=== PATIENT | male | born 1950 | race Caucasian/White ===

== ENCOUNTER → 2017-11-22 | Outpatient (CLI) | payer OTHER ==
[~2017-11-22] MED LIST: ALLO300; ASPI81CH; ATOR40TA; CHOL10002; CHONDROITEN; FISH1000 PO; FLUO10 PO; HYDACE5 PO; NAPR500EC PO; ONDA8 PO; PARO30; Viagra100 MG
== END | disposition home or self-care (01) ==
LOC: PLD 10:57 → LAB SHORT 10:57
DX: L57.0 Actinic keratosis (principal)
CPT/HCPCS: 88305

== ENCOUNTER 2018-09-04 09:03 | Day surgery (SDC) | payer OTHER ==
[~2018-09-04] VITALS: Ht 175.3 cm; Wt 95.2 kg
[~2018-09-04 09:03] MED LIST changes: -ALLO300; +ALLO300 PO; -ATOR40TA; +ATOR40TA PO; +Flonase 0.05% N16 GM
--- NOTE | 2018-09-04 09:35 | NUR ---
Ambulatory in Day Surgery History, Chart, Medications and Allergies reviewed before start of procedure.Lungs clear T/O to Auscultation. Patient confirms NPO status and agrees with scheduled surgery. Patient reports completing Chlorhexadine shower X2 prior to admission to hospital.Surgical site prepped with 2% Chlorhexidine cloth wipe.
--- NOTE | 2018-09-04 13:05 | NUR ---
BLADDER SCANNED 121 ML NOTED X 3
--- NOTE | 2018-09-04 19:58 | NUR ---
SUMARY POD # 0 R TKA PT HAS DONE WELL SINCE ADMISSION TO THE FLOOR. PT REMAINS A&O X4, DENIES PAIN AND IS TOLERATING PO INTAKE. PT HAS AMBULATED IN [place] X1 WITH 1 PERSON ASSIST, USING GAIT BELT & WALKER WITH NO PROBLEMS. VSS. CALL LIGHT IN REACH. REPORT GIVEN TO TOM HUANG
[2018-09-05 04:12] LABS: BASOPHILS ABSOLUTE AUTO 0.01 K/mm3 (0.00-0.23); BASOPHILS PERCENT AUTO 0 % (0-2); EOSINOPHILS ABSOLUTE AUTO 0.02 K/mm3 (0.00-0.68); EOSINOPHILS PERCENT AUTO 0 % (0-6); Hematocrit 37.1 % (37.0-53.0); Hemoglobin 11.7 g/dL (13.5-17.5); IMMATURE GRAN ABSOLUTE AUTO 0.04 K/mm3 (0.00-0.10); IMMATURE GRAN PERCENT AUTO 0 % (0-1); LYMPHOCYTES ABSOLUTE AUTO 0.67 K/mm3 (0.84-5.20); LYMPHOCYTES PERCENT AUTO 7 % (21-46); MONOCYTES ABSOLUTE AUTO 0.86 K/mm3 (0.16-1.47); MONOCYTES PERCENT AUTO 9 % (4-13); Mean Corpuscular HGB 31.1 pg (26.0-34.0); Mean Corpuscular HGB Conc 31.5 g/dL (31.5-36.5); Mean Corpuscular Volume 99 fL (80-100); Mean Platelet Volume 8.8 fL (9.1-12.4); NEUTROPHILS ABSOLUTE AUTO 8.47 K/mm3 (1.96-9.15); NEUTROPHILS PERCENT AUTO 84 % (41-73); Platelet Count 185 K/mm3 (150-400); RDW Coefficient Variation 12.7 % (11.7-14.2); RDW Standard Deviation 45.5 fL (35.1-46.3); Red Blood Cell Count 3.76 M/mm3 (4.30-5.90); White Blood Cell Count 10.07 K/mm3 (4.00-11.30)
--- NOTE | 2018-09-05 04:27 | NUR ---
SHIFT SUMMARY PT IS POD 1 RIGHT TKA. PT IS WBAT, AMBULATES W/ SBA, FWW, AND GB. PAIN CONTROLLED PER EMAR, PT HAS NOT REQUIRED MUCH MORE THAN THE SCHEDULED TYLENOL/TORADOL, REFUSED OXYCODONE THIS MORNING. ABX COMPLETED PER EMAR. PT WORE HIS HOME CPAP AT HS. VOIDING WITHOUT ISSUE. DENIES N/V. WILL CTM UNTIL PASS TO NEXT SHIFT.
[2018-09-05 04:39] LABS: Anion Gap 8 mmol/L (6-16); Blood Urea Nitrogen 25 mg/dL (8-24); Bun/Creatinine Ratio 25.5 (12.0-20.0); CO2, Blood 26 mmol/L (21-32); Calcium, Blood 8.1 mg/dL (8.5-10.1); Chloride, Blood 105 mmol/L (98-108); Creatinine, Blood 0.98 mg/dL (0.60-1.20); Glomerular Filtration Rate >60 (60-); Glucose, Blood 131 mg/dL (70-99); Potassium, Blood 4.3 mmol/L (3.5-5.5); Sodium, Blood 139 mmol/L (136-145)
[2018-09-05] MEDS ORDERED: ASPI325EC PO (09:26)
[2018-09-05] MEDS ORDERED: OXYC5 PO (09:27)
[2018-09-05] MEDS ORDERED: PROM25 PO (09:32)
--- NOTE | 2018-09-05 11:09 | NUR ---
09/05/18 1109 Madelyn Dalton VERIFICATIONS, CHART EDITS.
[2018-09-05] MEDS ORDERED: CLIN300 PO (13:10)
[2018-09-05] MEDS ORDERED: Bactrim Ds Tab1 EACH PO (13:11)
--- NOTE | 2018-09-05 16:12 | NUR ---
PATIENT D/C'D HOME W/ SO AT THIS TIME. PATIENT STATES UNDERSTANDING OF MEDS, WOUND CARE, ACTIVITY, F/U APPT, OP PT, ETC. PATIENT STATES PAIN CONTROLLED, TOLERATING PO, VOIDING W/O PROBS. NO ACUTE CHANGES OR C/O AT THIS TIME.
== END 2018-09-05 16:12 | disposition home or self-care (01) ==
LOC: ORSCMMR 09:03 → ORD 10:45 → ORSCMMR 10:45 → SURS 13:26 → ORSCMMR 09-05 16:12
PROVIDERS: Orthopaedic Surgery
PROC: 8E0YXBZ Computer Assisted Procedure of Lower Extremity (ICD-10-PCS; principal; 2018-09-04 10:45)
PROC: 0SRC0J9 Replacement of Right Knee Joint with Synthetic Substitute, Cemented, Open Approach (ICD-10-PCS; principal; 2018-09-04 10:45)
DX: M17.11 Unilateral primary osteoarthritis, right knee (principal); I10 Essential (primary) hypertension; E66.9 Obesity, unspecified; Z68.30 Body mass index [BMI] 30.0-30.9, adult; G47.33 Obstructive sleep apnea (adult) (pediatric); Z79.82 Long term (current) use of aspirin; Z79.899 Other long term (current) drug therapy
CPT/HCPCS: 36415; 73560-RT; 80048; 83735; 85025; 88300; 94762; 97110; 97116; 97162; 97530; C1713; C1776; J0171; J0690; J0735; J1100; J1885; J2250; J2370; J2405; J2795; J3010; J3370; J7120

== ENCOUNTER → 2021-07-31 | Outpatient (CLI) | payer OTHER ==
[~2021-07-31] MED LIST changes: +ASPI325EC PO; +Bactrim Ds Tab1 EACH PO; +CLIN300 PO; +OXYC5 PO; +PROM25 PO
== END ==
LOC: LAB SHORT 10:00
DX: R30.0 Dysuria (principal)
CPT/HCPCS: 87086

== ENCOUNTER → 2021-08-01 | Outpatient (CLI) | payer OTHER | LOC: LAB SHORT 09:00 | DX: R19.7 Diarrhea, unspecified (principal) | CPT/HCPCS: 87015; 87045; 87046; 87205; 87899 ==

== ENCOUNTER → 2021-10-04 | Outpatient (CLI) | payer OTHER ==
[~2021-10-04] MED LIST changes: +ALLEGRA ALLERGY60 MG PO; +Cialis5 MG; +FINA5 PO; +MULTIPLE VITAM1 EACH PO; +TAMS.4ER PO; +VITAMIN D325 MC3 PO
== END | disposition home or self-care (01) ==
LOC: PLD 07:20 → LAB SHORT 07:20
DX: C44.719 Basal cell carcinoma of skin of left lower limb, including hip (principal); D04.72 Carcinoma in situ of skin of left lower limb, including hip
CPT/HCPCS: 88305

== ENCOUNTER 2022-12-19 08:24 | Day surgery (SDC) | payer OTHER ==
[~2022-12-19] VITALS: Ht 175.3 cm; Wt 86.9 kg
[2022-12-19 10:54] VITALS: BP 96/74
== END 2022-12-19 10:45 | disposition home or self-care (01) ==
LOC: ORSCSDS 08:24
PROVIDERS: Surgery
PROC: 0DBK8ZX Excision of Ascending Colon, Via Natural or Artificial Opening Endoscopic, Diagnostic (ICD-10-PCS; principal; 2022-12-19 09:45)
DX: Z12.11 Encounter for screening for malignant neoplasm of colon (principal); Z86.010 Personal history of colon polyps; D12.2 Benign neoplasm of ascending colon; F32.A Depression, unspecified; E78.5 Hyperlipidemia, unspecified; I10 Essential (primary) hypertension; G47.33 Obstructive sleep apnea (adult) (pediatric); Z79.899 Other long term (current) drug therapy
CPT/HCPCS: 88305; J2001; J2704; J7120

== ENCOUNTER → 2023-06-20 | Outpatient (CLI) | payer OTHER | LOC: LAB SHORT 12:02 → PLD 12:02 | DX: C44.319 Basal cell carcinoma of skin of other parts of face (principal) | CPT/HCPCS: 88305 ==

== ENCOUNTER → 2023-08-29 | Outpatient (CLI) | payer OTHER | LOC: LAB 09:07 → LAB SHORT 09:07 | DX: L82.1 Other seborrheic keratosis (principal) | CPT/HCPCS: 88305 ==

== ENCOUNTER 2024-03-06 07:10 | Day surgery (SDC) | payer OTHER ==
[2024-03-06] VITALS (7 sets, daily range): BP systolic 134–158; BP diastolic 82–98
[~2024-03-06] VITALS: Ht 175.3 cm; Wt 89.0 kg
[~2024-03-06 07:10] MED LIST changes: +DOXY100 PO
[2024-03-06] MEDS ORDERED: NS 500 ML IV ONE (07:55)
[2024-03-06] MEDS ORDERED: NS 1,000 ML IV ONE ×2 (07:56→08:30)
[2024-03-06] MEDS ORDERED: Heparin Sodium 1000 Units/ML 10ML MDV ONE (07:56)
[2024-03-06] MEDS ORDERED: Midazolam HCl 1MG / ML 2ML Vial ONE (08:29)
[2024-03-06] MEDS ORDERED: FentaNYL Citrate 50 MCG/ML 2 ML Injection ONE (08:30)
[2024-03-06] MEDS ORDERED: Verapamil HCL 2.5 MG/ML 2ML Injection ONE (09:20)
[2024-03-06] MEDS ORDERED: Nitroglycerin 2 MG/20 ML BTL ONE (09:23)
[2024-03-06] MEDS ORDERED: Atropine Sulfate 0.1 MG/ML 10ML SYR ONE (09:24)
--- NOTE | 2024-03-06 11:40 | NUR ---
PATIENT ARRIVED BACK TO RECOVERY ROOM WITH HOB FLAT. R GROIN SITE C/D/I SOFT/NONTENDER, NO EVIDENCE OF BLEEDING. PATIENT RESTING COMFORTABLY. VSS ON RA
--- NOTE | 2024-03-06 11:52 | NUR ---
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 Right groin site soft, no oozing or hematoma at this time. pt. supine in bed. vss upon arrival to unit. pt. alert and oriented, snacks and fluids provided. pt assisted with urinal. pt. provdied with additional warm blankets. Dr. storey to bedside to update pt on procedure. NADN. call light in reach.
--- NOTE | 2024-03-06 12:02 | NUR ---
PATIENT TOELRATING PO INTAKE WELL. R GROIN SITE C/D/I SOFT/NONTENDER, NO EVIDENCE OF BLEEDING. VSS ON RA
--- NOTE | 2024-03-06 12:30 | NUR ---
PATIENT HOB ELEVATED 30 DEGREES. R GROIN SITE C/D/I. SOFT/NONTENDER, NO EVIDENCE OF BLEEDING. PULSES PRESENT. VSS ON RA
--- NOTE | 2024-03-06 12:35 | NUR ---
pt assisted with urinal. pt. voided 450cc
--- NOTE | 2024-03-06 13:09 | NUR ---
PATIENT AMBULATING TO RESTROOM WITHOUT DIFFICULTY. R GROIN SITE C/D/I SOFT/NONTENDER, NO EVIDENCE OF BLEEDING.
--- NOTE | 2024-03-06 13:20 | NUR ---
R GROIN SITE REASSESSED AFTER PATIENT GETTING DRESSED. R GROIN AREA WITH SMALL HARDENED SPOT. SITE C/D/I. PATIENT LAID DOWN AND PRESSURE APPLIED.
--- NOTE | 2024-03-06 13:40 | NUR ---
MD PRESENT AT BEDSIDE EXAMINING R GROIN AREA WITH ULTRASOUND. PATIENT OK TO DISCHARGE.
--- NOTE | 2024-03-06 13:45 | NUR ---
PATIENT DISCHARGED HOME AT THIS TIME. PIV REMOVED WITHOUT DIFFICULTY, CATHETER INTACT. DISHCARGE INSTRUCTIONS REVIEWED WITHPATIENT, ALL QUESTIONS WERE ANSWERED. ALL PATIENT BELONGINGS LEFT WITH PATIENT. PATIENT WHEELED TO HOSPITAL ENTRANCE AND SO ABLE TO TRANSPORT PATIENT HOME
== END 2024-03-06 14:22 | disposition home or self-care (01) ==
LOC: MHTC 07:10
PROC: 04LE3ZZ Occlusion of Right Internal Iliac Artery, Percutaneous Approach (ICD-10-PCS; principal; 2024-03-06)
DX: N40.0 Benign prostatic hyperplasia without lower urinary tract symptoms (principal); I10 Essential (primary) hypertension; E78.5 Hyperlipidemia, unspecified; Z87.891 Personal history of nicotine dependence; Z79.899 Other long term (current) drug therapy
CPT/HCPCS: 36245; 37242; 75716; 75774; 76937; 99152; 99153; C1760; C1769; C1887; C1894; J0461; J1644; J2250; J3010; J7030; J7050; Q9967

== ENCOUNTER 2024-03-10 19:18 | Emergency (ER) | payer OTHER ==
[~2024-03-10] VITALS: Ht 175.3 cm; Wt 83.9 kg
[2024-03-10 22:00] VITALS: BP 149/89
[2024-03-10] MEDS ORDERED: Lidocaine 2% Jelly Uro-Jet UR ONE (22:15)
[2024-03-10] MEDS ORDERED: OxyCODONE HCL 5 MG TAB PO ONE (22:15)
[2024-03-10] MEDS ORDERED: Acetaminophen 325 MG TABLET PO ONE (22:30)
[2024-03-10 23:00] LABS: Source, Urine Clean Catch
[2024-03-10 23:03] LABS: Bilirubin, Urine Neg (Neg); Blood, Urine 5+ (Neg); Glucose Qualitative, Urine Neg (Neg); Ketones, Urine 1+ (Neg); Leukocyte Esterase, Urine 1+ (Neg); Nitrite, Urine Neg (Neg); Protein, Urine 2+ (Neg); Specific Gravity, Urine 1.025 (1.003-1.022); Urobilinogen, Urine NORM (Normal)
[2024-03-10 23:13] LABS: Appearance, Urine Hazy (Clear); Color, Urine Yellow (P-Yellow)
[2024-03-10 23:14] LABS: Amorphous Heavy (0-Heavy); Bacteria Rare /hpf; Granular Casts 0-2 /lpf (0); Mucus Mod (0-Heavy); Squamous Epithelial Cells Not Seen /hpf (Few); White Blood Cells, Urine 0-2 /hpf (0-5)
[2024-03-10] MEDS ORDERED: RX Prepack 6 Tabs Oxycodone 5mg UD ONE (23:40)
[2024-03-10] MEDS ORDERED: OXAYDO5 M1 PO (23:43)
== END 2024-03-10 23:54 | disposition home or self-care (01) ==
LOC: ER 19:18
PROVIDERS: Student in an Organized Health Care Education/Training Program
DX: N48.89 Other specified disorders of penis (principal); I10 Essential (primary) hypertension; E78.5 Hyperlipidemia, unspecified; N40.0 Benign prostatic hyperplasia without lower urinary tract symptoms; Z87.891 Personal history of nicotine dependence; Z79.899 Other long term (current) drug therapy
CPT/HCPCS: 81001; 99283; A9270